=== PATIENT | male | born 1990 | race Caucasian/White ===

== ENCOUNTER 2019-10-20 13:51 | Emergency (ER) | payer BC ==
--- NOTE | 2019-10-20 14:33 | Emergency Department Report ---
ED General Adult HPI - General Chief complaint: Urogenital-Male Stated complaint: CANT HOLD URINE/LOWER BACK PAIN Source: patient Mode of arrival: Ambulatory Limitations: No Limitations - History of Present Illness Initial comments: 29 y.o. male with a history of sciatica presents complaining of lower back pain. Patient states that he is in the sciatica for the past 2 months. Patient states that today he has had urinary incontinence and feels that he can't urinate. Patient states he went to a chiropractor on Saturday and was told he needed an MRI. Patient states he also went to an urgent care and received pain medication for sciatica on Saturday. Patient states that he looked up his symptoms on google and then presented here to the emergency department. Patient denies any recent falls. Patient denies any fever. - Related Data Previous Rx's Medication Instructions Recorded Last Taken Type HYDROcodone/APAP 5-325 [Juntura 1 each PO Q6HR PRN #20 tablet 10/20/19 Unknown Rx 5/325] Allergies Allergy/AdvReac Type Severity Reaction Status Date / Time No Known Allergies Allergy Unverified 10/20/19 13:55 ED Review of Systems ROS: Stated complaint: CANT HOLD URINE/LOWER BACK PAIN Other details as noted in HPI Constitutional: denies: chills, fever Eyes: denies: eye pain, eye discharge, vision change ENT: denies: ear pain, throat pain Respiratory: denies: cough, shortness of breath, wheezing Cardiovascular: denies: chest pain, palpitations Endocrine: no symptoms reported Gastrointestinal: denies: abdominal pain, nausea, diarrhea Genitourinary: frequency Musculoskeletal: denies: back pain, joint swelling, arthralgia Skin: denies: rash, lesions Neurological: denies: headache, weakness, paresthesias Psychiatric: denies: anxiety, depression Hematological/Lymphatic: denies: easy bleeding, easy bruising ED Past Medical Hx - Past Medical History Previous Medical History?: Yes - Surgical History Additional Surgical History: bach surgery - Medications Home Medications: Home Medications Medication Instructions Recorded Confirmed Last Taken Type HYDROcodone/APAP 5-325 [Juntura 1 each PO Q6HR PRN #20 tablet 10/20/19 Unknown Rx 5/325] ED Physical Exam - General Limitations: No Limitations General appearance: alert, other (mild distress) - Head Head exam: Present: atraumatic, normocephalic - Eye Eye exam: Present: normal appearance - ENT ENT exam: Present: mucous membranes moist - Neck Neck exam: Present: normal inspection - Respiratory Respiratory exam: Present: normal lung sounds bilaterally. Absent: respiratory distress - Cardiovascular Cardiovascular Exam: Present: regular rate, normal rhythm. Absent: systolic murmur, diastolic murmur, rubs, gallop - GI/Abdominal GI/Abdominal exam: Present: soft, normal bowel sounds - Rectal Rectal exam: Present: deferred, decreased rectal tone, other (no decrease in rectal sensation) - Extremities Exam Extremities exam: Present: normal inspection - Back Exam Back exam: Present: tenderness (tenderness noted in L4 L5 region) - Neurological Exam Neurological exam: Present: alert, oriented X3, CN II-XII intact. Absent: motor sensory deficit - Psychiatric Psychiatric exam: Present: normal affect, normal mood - Skin Skin exam: Present: warm, dry, intact, normal color. Absent: rash ED Course Vital Signs 10/20/19 14:52 Temperature 98.5 F Pulse Rate 96 H Respiratory 18 Rate Blood Pressure 129/82 [Left] O2 Sat by Pulse 96 Oximetry ED Medical Decision Making - Lab Data Result diagrams: 10/20/19 15:29 10/20/19 15:29 - Medical Decision Making Patient had MRI which shows no abnormality with the spinal cord. Patient noted to have dyspnea protrusion at L4-L5 and L3-L4 region. This was discussed with the neurosurgeon at [facility] Dr. Ball who states that with these findings patient can follow up as an outpatient. Upon further discussion, patient states that he does not urinate on himself but that he has the feeling to go but little urine comes out. Patient was agreeable to a Gamble catheter and will be discharged to follow up with a leg bag. patient to follow up with neurosurgery as outpatient. Patient able to ambulate. - Differential Diagnosis Cauda Equina; Dehydration; Electrolyte Abnormality Critical care attestation.: If time is entered above; I have spent that time in minutes in the direct care of this critically ill patient, excluding procedure time. ED Disposition Clinical Impression: Spinal stenosis, Sciatica Disposition: - TO HOME OR SELFCARE Is pt being admited?: No Condition: Stable Instructions: Sciatica (ED) Prescriptions: HYDROcodone/APAP 5-325 [Juntura 5/325] 1 each PO Q6HR PRN #20 tablet PRN Reason: Pain Referrals: PRIMARY CARE, [Primary Care Provider] - 3-5 Days LATASHA ZAMORA MD [Staff Physician] - 3-5 Days RADHA KAMARA MD [Staff Physician] - 3-5 Days Time of Disposition: 19:10 Print Language: GREEK
[2019-10-20] MEDS ORDERED: KETOROLAC 30 MG/1 ML INJ IV ONE (14:41)
[2019-10-20 14:54] VITALS: BP 129/82
[2019-10-20 15:52] LABS: Hematocrit 44.8 % (35.5-45.6); Hemoglobin 15.1 gm/dl (11.8-15.2); Mean Corpuscular HGB Conc 34 % (32-34); Mean Corpuscular Volume 90 fl (84-94); Platelet Count 312 K/mm3 (140-440); Red Blood Count 4.95 M/mm3 (3.65-5.03)
[2019-10-20 16:15] LABS: Alanine Aminotransferase 50 units/L (7-56); Albumin 4.7 g/dL (3.9-5); BUN/Creatinine Ratio 20; Blood Urea Nitrogen 14 mg/dL (9-20); Hemolysis Index 22
--- NOTE | 2019-10-20 16:44 | Magnetic Resonance Report ---
MRI LUMBAR SPINE WITHOUT CONTRAST INDICATION / CLINICAL INFORMATION: urinary incontinence and back pain. TECHNIQUE: Multisequence, multiplanar images of the lumbar spine were obtained. COMPARISON: None available. FINDINGS: ALIGNMENT: Normal lumbar lordosis without significant scoliosis. VERTEBRAE:Normal marrow signal and vertebral body height for age. VISUALIZED SPINAL CORD: No significant abnormality. [id number] ANALYSIS: L1-2: No significant abnormality L2-3: No significant abnormality. L3-4: This broad-based central disc protrusion which results in marked spinal stenosis at. There is s light neural foraminal narrowing bilaterally. L4-5: There is a left hemilaminectomy at defect. However, there appears to be significant spinal sten osis and indicative of recurrent disc protrusion at. However, the findings at may be a exacerbated by postsurgical changes and postcontrast imaging and may be considered to further distinguish. The neur al foramen appear patent. L5-S1: There is no significant stenosis. There appears be mild transitional component to the L5 verte brae. PARASPINAL SOFT TISSUES: No significant abnormality. ADDITIONAL FINDINGS: None. IMPRESSION: 1. Status post left hemilaminectomy at L4-5 with findings indicative of recurrent disc protrusion and marked spinal stenosis as a detailed above; postcontrast imaging may be considered to further deline ate this finding and distinguish from postsurgical changes. 2. There is a central disc protrusion at L3-L4 with marked spinal stenosis. Signer Name: Jason Chew MD Signed: 10/20/2019 4:40 PM Workstation Name: [id number]
[2019-10-20 17:03] LABS: Bilirubin,Urine NEG (Negative); Blood,Urine NEG (Negative); Color,Urine Yellow (Yellow); Mucus,Urine FEW /HPF; Protein,Urine <15 mg/dL mg/dL (Negative); Urobilinogen,Urine < 2.0 mg/dL (<2.0)
[2019-10-20] MEDS ORDERED: HYDROcodone/ACETAMINOPHEN 10-325MG TAB PO ONE (17:54)
== END 2019-10-20 20:28 | disposition home or self-care (01) ==
LOC: ED 13:51
DX: M54.40 Lumbago with sciatica, unspecified side (principal); M48.061 Spinal stenosis, lumbar region without neurogenic claudication; Z98.890 Other specified postprocedural states; Z79.899 Other long term (current) drug therapy
CPT/HCPCS: 36415; 51702; 72148; 80053; 81001; 85027; 96374; 99284; J1885